=== PATIENT | male | born 1965 | race African-American/Black ===

== ENCOUNTER 2021-07-22 15:31 | Inpatient (IN) | payer OTHER ==
[~2021-07-22] VITALS: Ht 177.8 cm; Wt 112.5 kg
[2021-07-22] MEDS ORDERED: MORPHINE SULFATE 4 MG/ML CPJ (NOT FOR IM USE) IV STA (15:48)
[2021-07-22] MEDS ORDERED: SODIUM CHLORIDE 0.9% 1,000 ML IV ONE (16:00)
[2021-07-22] MEDS ORDERED: KETOROLAC 60MG/2ML VIAL IM ONE (18:15)
[2021-07-22 19:03] LABS: HEMATOCRIT. 40.3 % (42.0-52.0); HEMOGLOBIN. 13.5 g/dL (14.0-18.0); MEAN CORPUSCULAR VOLUME 83.8 fL (80.0-94.0); MEAN PLATELET VOLUME 6.4 fl (7.4-10.4); PLATELET 481 x1000/uL (130-400); RED BLOOD CELL COUNT 4.81 mill/uL (4.7-6.1); RED CELL DISTRIBUTION WIDTH 15.1 % (11.6-14.6)
[2021-07-22 19:07] LABS: CHLORIDE 101 mEq/L (98-107)
[2021-07-22 19:19] LABS: PLATELET ESTIMATE INCREASED
[2021-07-22] MEDS ORDERED: CEFTRIAXONE 1 G PREMIX 50 ML IV ONE (20:00)
[2021-07-22] MEDS ORDERED: MORPHINE SULFATE 4 MG/ML CPJ (NOT FOR IM USE) IV ONE (20:45)
[2021-07-22 21:38] LABS: CLARITY URINE CLEAR (CLEAR); COLOR URINE ORANGE (YELLOW); KETONES URINE TRACE (NEGATIVE); LEUKOCYTE ESTERASE URINE TRACE (NEGATIVE); NITRITE URINE NEGATIVE (NEGATIVE); OCCULT BLOOD URINE NEGATIVE (NEGATIVE); PROTEIN URINE 1+ (NEGATIVE); SPECIFIC GRAVITY URINE 1.021 (1.005-1.030); UROBILINOGEN URINE 0.2 E.U./dL (0.2-1.0)
[2021-07-23] MEDS ORDERED: KETOROLAC 30MG/ML VIAL IV ONE (00:15)
[2021-07-23] MEDS: DOXYCYCLINE 100 MG in DEXT 5% WATER 100 ML IV SCH ×2 (00:55→08:00)
[2021-07-23] MEDS ORDERED: KETOROLAC 30MG/ML VIAL IV SCH (05:45)
[2021-07-23] MEDS ORDERED: ACETAMINOPHEN 325MG TABLET PO PRN ×2 (06:30)
[2021-07-23] MEDS ORDERED: NITROGLYCERIN 0.4MG TABLET SL SL PRN (06:30)
[2021-07-23] MEDS ORDERED: IPRATROPIUM/ALBUTEROL 0.5-3(2.5)MG/3ML NEB NEB PRN (06:30)
[2021-07-23] MEDS ORDERED: MAGNESIUM/ALUMINUM HYDROXIDE/SIMETHICONE 30ML UDC PO PRN (06:30)
[2021-07-23] MEDS ORDERED: GUAIFENESIN 200MG/10ML SUGAR FREE UDC PO PRN (06:30)
[2021-07-23] MEDS ORDERED: ONDANSETRON HCL 4MG/2ML INJ IV PRN (06:30)
[2021-07-23] MEDS ORDERED: AZITHROMYCIN 500 MG in DEXT 5% WATER 250 ML IV SCH (06:30)
[2021-07-23] MEDS: DILTIAZEM HCL 300MG CAPSULE SR 24HR PO SCH (07:21)
[2021-07-23] MEDS: ENOXAPARIN 40MG/0.4ML SYR SUBCUT SCH (08:00)
[2021-07-23] MEDS ORDERED: DOCUSATE SODIUM 100MG CAPSULE PO PRN (09:00)
[2021-07-23] MEDS: ZINC SULFATE 220 MG ( 50 ) CAPSULE PO SCH (09:07)
[2021-07-23] MEDS: FAMOTIDINE 20MG TABLET PO SCH ×2 (09:07→20:55)
[2021-07-23] MEDS: ASCORBIC ACID 500 MG TABLET PO SCH ×2 (09:08→20:55)
[2021-07-23 10:37] LABS: HEMOGLOBIN. 11.5 g/dL (14.0-18.0); MEAN CORPUSCULAR VOLUME 82.8 fL (80.0-94.0); MEAN PLATELET VOLUME 6.2 fl (7.4-10.4); PLATELET 383 x1000/uL (130-400); RED BLOOD CELL COUNT 3.98 mill/uL (4.7-6.1); RED CELL DISTRIBUTION WIDTH 15.3 % (11.6-14.6)
[2021-07-23 10:46] LABS: CHLORIDE 100 mEq/L (98-107)
[2021-07-23 10:49] LABS: BG BASE EXCESS -0.7 mmol/L (-2.0-2.0); BG CARBOXYHEMOGLOBIN 0.7 % (0.5-1.5); BG DEOXYHEMOGLOBIN 8.6 % (0.0-5.0); BG HCO3 ACT 23.6 mmol/L (22.0-26.0); BG METHEMOGLOBIN 0.3 % (0.0-1.5); BG OXYGEN SATURATION 91.3 % (92.0-98.5); BG OXYHEMOGLOBIN 90.4 % (94.0-97.0); BG PCO2 37.4 mmHg (35.0-45.0); BG PH 7.417 (7.350-7.450); BG PO2 66.8 mmHg (75.0-100.0); BG SAMPLE SITE RIGHT RADIAL; BG VENT MODE MASK - SIMPLE
[2021-07-23 10:55] LABS: LDL CHOLESTEROL 93 mg/dL (5-100)
[2021-07-23 10:56] LABS: HDL CHOLESTEROL 27 mg/dL (40-59)
[2021-07-23 10:57] LABS: TOTAL IRON BINDING CAPACITY 345 ug/dL (250-450)
[2021-07-23] MEDS: KETOROLAC 15MG/ML VIAL IV PRN ×2 (11:45→19:18)
[2021-07-23 11:56] LABS: PLATELET ESTIMATE NORMAL
[2021-07-23 12:08] LABS: FOLIC ACID (FOLATE) SERUM >20 ng/mL ng/mL (>5.38)
[2021-07-23 12:20] LABS: VITAMIN B12 SERUM 1023 pg/mL (211-911)
[2021-07-23] MEDS ORDERED: PNEUMOCOCCAL 23-VAL P-SAC VAC 0.5 ML IM ONE (18:45)
[2021-07-23 20:00] VITALS: BP 133/70
[2021-07-23 20:07] VITALS: BP 133/70
[2021-07-23] MEDS: CEFTRIAXONE 1,000 MG in DEXTROSE 5% WATER 50 ML IV SCH (20:55)
[2021-07-23] MEDS ORDERED: CEFTRIAXONE 1,000 MG in DEXTROSE 5% WATER 50 ML IV SCH (21:00)
[2021-07-23] MEDS ORDERED: ZOLPIDEM TARTRATE 5MG TABLET PO PRN (21:00)
[2021-07-24] VITALS: BP 140/77
[2021-07-24 00:07] LABS: INR 1.2
[2021-07-24 00:10] LABS: CREATINE KINASE 96 IU/L (39-308)
[2021-07-24 00:11] LABS: CREATINE KINASE MB FRACTION 1.6 ng/mL (0.5-3.6)
[2021-07-24 04:00] VITALS: BP 161/79
[2021-07-24] MEDS: AZITHROMYCIN 500 MG in DEXT 5% WATER 250 ML IV SCH (06:03)
[2021-07-24 08:00] VITALS: BP 156/97
[2021-07-24] MEDS ORDERED: SODIUM BICARBONATE 4% (2.4MEQ) 5ML VIAL IV ONE (08:00)
[2021-07-24] MEDS: KETOROLAC 15MG/ML VIAL IV PRN ×2 (09:09→20:07)
[2021-07-24] MEDS: ENOXAPARIN 40MG/0.4ML SYR SUBCUT SCH (09:55)
[2021-07-24] MEDS: ASCORBIC ACID 500 MG TABLET PO SCH ×2 (09:55→20:07)
[2021-07-24] MEDS: ZINC SULFATE 220 MG ( 50 ) CAPSULE PO SCH (09:55)
[2021-07-24] MEDS: DILTIAZEM HCL 300MG CAPSULE SR 24HR PO SCH (09:56)
[2021-07-24] MEDS: FAMOTIDINE 20MG TABLET PO SCH ×2 (10:27→20:07)
[2021-07-24 12:00] VITALS: BP 145/89
[2021-07-24 16:00] VITALS: BP 152/94
[2021-07-24] MEDS: CLONIDINE 0.1MG TABLET PO PRN (17:05)
[2021-07-24 20:00] VITALS: BP 113/62
[2021-07-24] MEDS: CEFTRIAXONE 1,000 MG in DEXTROSE 5% WATER 50 ML IV SCH (20:06)
[2021-07-24] MEDS: IPRATROPIUM/ALBUTEROL 0.5-3(2.5)MG/3ML NEB HHN SCH (20:21)
[2021-07-25] VITALS: BP 137/87
[2021-07-25] MEDS: IPRATROPIUM/ALBUTEROL 0.5-3(2.5)MG/3ML NEB HHN SCH ×3 (02:05→13:12)
[2021-07-25 04:00] VITALS: BP 158/94
[2021-07-25] MEDS: CLONIDINE 0.1MG TABLET PO PRN (04:41)
[2021-07-25] MEDS: KETOROLAC 15MG/ML VIAL IV PRN ×2 (06:09→21:19)
[2021-07-25] MEDS: AZITHROMYCIN 500 MG in DEXT 5% WATER 250 ML IV SCH (06:10)
[2021-07-25 08:00] VITALS: BP 148/86
[2021-07-25] MEDS: ENOXAPARIN 40MG/0.4ML SYR SUBCUT SCH (08:39)
[2021-07-25] MEDS: FAMOTIDINE 20MG TABLET PO SCH ×2 (08:39→21:07)
[2021-07-25] MEDS: ASCORBIC ACID 500 MG TABLET PO SCH ×2 (08:40→21:07)
[2021-07-25] MEDS: ZINC SULFATE 220 MG ( 50 ) CAPSULE PO SCH (08:40)
[2021-07-25] MEDS: DILTIAZEM HCL 300MG CAPSULE SR 24HR PO SCH (08:51)
[2021-07-25 09:18] LABS: *AMPHETAMINES SCREEN URINE NEGATIVE (NEGATIVE); *BARBITURATES SCREEN URINE NEGATIVE (NEGATIVE); *BENZODIAZEPINES SCREEN URINE NEGATIVE (NEGATIVE); *COCAINE SCREEN URINE NEGATIVE (NEGATIVE)
[2021-07-25 09:19] LABS: CANNABINOID URINE SCREEN NEGATIVE (NEGATIVE); METHADONE URINE SCREEN NEGATIVE (NEGATIVE); OPIATES URINE SCREEN NEGATIVE (NEGATIVE); PHENCYCLIDINE URINE SCREEN NEGATIVE (NEGATIVE)
[2021-07-25 12:00] VITALS: BP 114/78
[2021-07-25 16:00] VITALS: BP 142/77
[2021-07-25 20:00] VITALS: BP 160/71
[2021-07-25] MEDS: CEFTRIAXONE 1,000 MG in DEXTROSE 5% WATER 50 ML IV SCH (21:06)
[2021-07-26] VITALS: BP 129/78
[2021-07-26 04:00] VITALS: BP 137/74
[2021-07-26] MEDS: AZITHROMYCIN 500 MG in DEXT 5% WATER 250 ML IV SCH (06:24)
[2021-07-26 08:00] VITALS: BP 160/91
[2021-07-26] MEDS: IPRATROPIUM/ALBUTEROL 0.5-3(2.5)MG/3ML NEB HHN SCH ×3 (08:23→21:00)
[2021-07-26] MEDS: ASCORBIC ACID 500 MG TABLET PO SCH ×2 (08:40→22:48)
[2021-07-26] MEDS: DILTIAZEM HCL 300MG CAPSULE SR 24HR PO SCH (08:40)
[2021-07-26] MEDS: ZINC SULFATE 220 MG ( 50 ) CAPSULE PO SCH (08:40)
[2021-07-26] MEDS: ENOXAPARIN 40MG/0.4ML SYR SUBCUT SCH (08:40)
[2021-07-26] MEDS: FAMOTIDINE 20MG TABLET PO SCH ×2 (08:40→22:48)
[2021-07-26 12:00] VITALS: BP 145/78
[2021-07-26 12:10] LABS: BG BASE EXCESS 5.2 mmol/L (-2.0-2.0); BG CARBOXYHEMOGLOBIN 0.2 % (0.5-1.5); BG DEOXYHEMOGLOBIN 7.2 % (0.0-5.0); BG FRACTION INSPIRED OXYGEN 21; BG HCO3 ACT 28.4 mmol/L (22.0-26.0); BG OXYGEN SATURATION 92.8 % (92.0-98.5); BG OXYHEMOGLOBIN 92.6 % (94.0-97.0); BG PCO2 36.6 mmHg (35.0-45.0); BG PH 7.507 (7.350-7.450); BG PO2 66.3 mmHg (75.0-100.0); BG SAMPLE SITE RIGHT RADIAL; BG TOTAL HEMOGLOBIN 12.4 g/dL (12.0-18.0); BG VENT MODE ROOM AIR
[2021-07-26 16:00] VITALS: BP 147/80
[2021-07-26] MEDS: KETOROLAC 15MG/ML VIAL IV PRN (16:29)
[2021-07-26 20:00] VITALS: BP 156/78
[2021-07-26] MEDS: CEFTRIAXONE 1,000 MG in DEXTROSE 5% WATER 50 ML IV SCH (22:47)
[2021-07-26] MEDS: ENOXAPARIN 30MG/0.3ML SYR SUBCUT SCH (22:48)
[2021-07-27] VITALS: BP 148/74
[2021-07-27] MEDS: IPRATROPIUM/ALBUTEROL 0.5-3(2.5)MG/3ML NEB HHN SCH ×2 (01:50→08:00)
[2021-07-27 04:00] VITALS: BP 150/83
[2021-07-27] MEDS: AZITHROMYCIN 500 MG in DEXT 5% WATER 250 ML IV SCH (06:24)
[2021-07-27 08:34] VITALS: BP 133/78
[2021-07-27] MEDS: ZINC SULFATE 220 MG ( 50 ) CAPSULE PO SCH (08:50)
[2021-07-27] MEDS: FAMOTIDINE 20MG TABLET PO SCH (08:50)
[2021-07-27] MEDS: ENOXAPARIN 30MG/0.3ML SYR SUBCUT SCH (08:50)
[2021-07-27] MEDS: ASCORBIC ACID 500 MG TABLET PO SCH (08:51)
[2021-07-27] MEDS: DILTIAZEM HCL 300MG CAPSULE SR 24HR PO SCH (08:51)
[2021-07-27 11:39] VITALS: BP 133/78
== END 2021-07-27 12:25 | disposition home or self-care (01) | DRG 871 ==
LOC: ER 15:31 → MICUSO 23:04 → 5WST 07-23 17:34
PROVIDERS: ADMIT Internal Medicine; ATTEND Internal Medicine
DX: A41.9 Sepsis, unspecified organism (principal); N17.0 Acute kidney failure with tubular necrosis; J96.01 Acute respiratory failure with hypoxia; J18.9 Pneumonia, unspecified organism; E44.1 Mild protein-calorie malnutrition; E87.1 Hypo-osmolality and hyponatremia; J91.8 Pleural effusion in other conditions classified elsewhere; D64.9 Anemia, unspecified; E86.1 Hypovolemia; Z60.2 Problems related to living alone; I10 Essential (primary) hypertension; K42.9 Umbilical hernia without obstruction or gangrene; N21.0 Calculus in bladder; Z20.822 Contact with and (suspected) exposure to COVID-19; Z87.442 Personal history of urinary calculi; Z68.35 Body mass index [BMI] 35.0-35.9, adult; Z53.8 Procedure and treatment not carried out for other reasons
CPT/HCPCS: 36415; 36600; 71045; 71250; 74176; 76604; 80053; 80061; 80305; 81003; 82375; 82550; 82553; 82607; 82746; 82805; 83036; 83540; 83550; 83605; 83615; 83880; 84145; 84484; 85025; 87426; 93005; 93306; 93970; 94640; 97161; 99285; J0456; J0696; J1650; J1885; J2270; J2405; J3490; J7030; J7040; J7060